=== PATIENT | male | born 1945 | race Caucasian/White ===

== ENCOUNTER 2019-05-05 15:56 | Inpatient (IN) | payer MEDICARE, BC ==
[~2019-05-05] VITALS: Ht 175.3 cm; Wt 67.6 kg
[~2019-05-05 15:56] MED LIST: CHOL400T10 PO; MIRT15TA5 PO; PRED20TA PO; SIMV20TA PO; VITA200C45 PO
[2019-05-05] MEDS ORDERED: ACETAMINOPHEN 325 MG TAB PO PRN ×2 (16:30→22:00)
[2019-05-05] MEDS ORDERED: ONDANSETRON 4 MG INJ IV PRN (16:30)
[2019-05-05] MEDS ORDERED: DILTIAZEM 25 MG INJ ONE (16:34)
[2019-05-05] MEDS ORDERED: DILTIAZEM 30 MG TAB PO ONE (17:00)
[2019-05-05] MEDS ORDERED: DILTIAZEM 25 MG INJ IV ONE (17:00)
[2019-05-05] MEDS ORDERED: DILTIAZEM-D5W 125MG/125ML DRIP 125 ML IV STA (17:07)
[2019-05-05] MEDS ORDERED: DILTIAZEM 25 MG INJ IV STA (17:07)
[2019-05-05] MEDS ORDERED: ASPIRIN 325 MG TAB PO ONE (17:30)
[2019-05-05 20:35] VITALS: BP 133/83; PULSE 81; RESP 21; Ht 175.3 cm; Wt 67.6 kg
[2019-05-05] MEDS ORDERED: NACL 0.9% 3 ML SYG IV SCH (22:00)
[2019-05-05] MEDS: ATORVASTATIN 10 MG TAB PO SCH (22:25)
[2019-05-06 00:03] VITALS: BP 103/63; PULSE 75; RESP 20
[2019-05-06 04:00] VITALS: BP 102/66; PULSE 73; RESP 20
[2019-05-06] MEDS: PANTOPRAZOLE (EC) 40 MG TAB PO SCH (05:44)
[2019-05-06 07:48] VITALS: BP 120/85; PULSE 83; RESP 17
[2019-05-06] MEDS: VITAMIN E 200 UNITS CAP PO SCH (09:31)
[2019-05-06] MEDS: CHOLECALCIFEROL 400 UNITS TAB PO SCH (09:32)
[2019-05-06] MEDS: predniSONE 20 MG TAB PO SCH ×3 (09:32→21:00)
[2019-05-06] MEDS: DILTIAZEM (CD) 120 MG CAP PO SCH ×2 (09:32→21:00)
[2019-05-06] MEDS ORDERED: DILTIAZEM 25 MG INJ IV ONE (10:00)
[2019-05-06 11:14] VITALS: BP 123/68; PULSE 87; RESP 19
[2019-05-06] MEDS: DRONEDARONE HYDROCHLORIDE 400 MG TAB PO SCH ×2 (11:27→17:41)
[2019-05-06 15:42] VITALS: BP 118/74; PULSE 85; RESP 17
[2019-05-06 20:00] VITALS: BP 146/86; PULSE 95; RESP 20
[2019-05-06] MEDS: MIRTAZAPINE 15 MG TAB PO SCH (20:59)
[2019-05-06] MEDS: ATORVASTATIN 10 MG TAB PO SCH (21:00)
[2019-05-06] MEDS ORDERED: NON-FORMULARY/PATIENT OWN MED (Simvastatin* (Zocor*) 20 MG) PO SCH (21:00)
[2019-05-07] VITALS: BP 100/63; PULSE 79; RESP 20
[2019-05-07 04:00] VITALS: BP 119/79; PULSE 68; RESP 20
[2019-05-07] MEDS: PANTOPRAZOLE (EC) 40 MG TAB PO SCH (05:00)
[2019-05-07 07:22] VITALS: BP 141/80; PULSE 80; RESP 16
[2019-05-07] MEDS: LEVALBUTEROL (NEB) 0.63 MG/3 ML AMP HHN SCH ×3 (08:00→20:02)
[2019-05-07] MEDS: DRONEDARONE HYDROCHLORIDE 400 MG TAB PO SCH ×2 (08:23→17:16)
[2019-05-07] MEDS: predniSONE 20 MG TAB PO SCH ×3 (08:23→20:53)
[2019-05-07] MEDS: CHOLECALCIFEROL 400 UNITS TAB PO SCH (08:24)
[2019-05-07] MEDS: DILTIAZEM (CD) 120 MG CAP PO SCH ×2 (08:24→20:55)
[2019-05-07] MEDS: VITAMIN E 200 UNITS CAP PO SCH (09:49)
[2019-05-07 11:13] VITALS: BP 124/84; PULSE 56; RESP 18
[2019-05-07 15:10] VITALS: BP 116/77; PULSE 60; RESP 18
[2019-05-07 20:00] VITALS: BP 121/77; PULSE 79; RESP 18
[2019-05-07] MEDS: MIRTAZAPINE 15 MG TAB PO SCH (20:53)
[2019-05-07] MEDS: ATORVASTATIN 10 MG TAB PO SCH (20:58)
[2019-05-08] VITALS: BP 116/78; PULSE 72; RESP 18
[2019-05-08] MEDS: LEVALBUTEROL (NEB) 0.63 MG/3 ML AMP HHN SCH ×4 (02:00→19:56)
[2019-05-08 04:00] VITALS: BP 113/77; PULSE 80; RESP 18
[2019-05-08] MEDS: PANTOPRAZOLE (EC) 40 MG TAB PO SCH (06:01)
[2019-05-08 07:00] VITALS: BP 116/87; PULSE 68; RESP 16
[2019-05-08] MEDS: predniSONE 20 MG TAB PO SCH (08:55)
[2019-05-08] MEDS: CHOLECALCIFEROL 400 UNITS TAB PO SCH (08:55)
[2019-05-08] MEDS: DRONEDARONE HYDROCHLORIDE 400 MG TAB PO SCH ×2 (08:56→18:07)
[2019-05-08] MEDS: VITAMIN E 200 UNITS CAP PO SCH (08:59)
[2019-05-08] MEDS: DILTIAZEM (CD) 120 MG CAP PO SCH ×2 (09:07→22:15)
[2019-05-08 11:05] VITALS: BP 118/65; PULSE 78; RESP 18
[2019-05-08] MEDS: FUROSEMIDE 40 MG INJ IV SCH (11:40)
[2019-05-08] MEDS: ASPIRIN (EC) 81 MG TAB PO SCH (12:51)
[2019-05-08 15:00] VITALS: BP 109/62; PULSE 58; RESP 18
[2019-05-08] MEDS: METHYLPREDNISOLONE 40 MG INJ IV SCH ×2 (15:16→22:15)
[2019-05-08 20:00] VITALS: BP 137/75; PULSE 78; RESP 18
[2019-05-08] MEDS: ATORVASTATIN 10 MG TAB PO SCH (21:00)
[2019-05-08] MEDS: MIRTAZAPINE 15 MG TAB PO SCH (22:14)
[2019-05-09] VITALS: BP 122/63; PULSE 69; RESP 18
[2019-05-09] MEDS: LEVALBUTEROL (NEB) 0.63 MG/3 ML AMP HHN SCH ×4 (02:00→19:59)
[2019-05-09 04:00] VITALS: BP 127/80; PULSE 51; RESP 18
[2019-05-09] MEDS: PANTOPRAZOLE (EC) 40 MG TAB PO SCH (05:18)
[2019-05-09] MEDS: METHYLPREDNISOLONE 40 MG INJ IV SCH ×3 (05:18→21:44)
[2019-05-09 07:19] VITALS: BP 117/82; PULSE 66; RESP 18
[2019-05-09] MEDS: VITAMIN E 200 UNITS CAP PO SCH (08:04)
[2019-05-09] MEDS: CHOLECALCIFEROL 400 UNITS TAB PO SCH (08:04)
[2019-05-09] MEDS: DRONEDARONE HYDROCHLORIDE 400 MG TAB PO SCH ×2 (08:05→17:26)
[2019-05-09] MEDS: FUROSEMIDE 40 MG INJ IV SCH (08:05)
[2019-05-09] MEDS: DILTIAZEM (CD) 120 MG CAP PO SCH ×2 (08:05→21:46)
[2019-05-09] MEDS: ASPIRIN (EC) 81 MG TAB PO SCH (08:12)
[2019-05-09 11:38] VITALS: BP 150/78; PULSE 78; RESP 18
[2019-05-09 15:23] VITALS: BP 118/79; PULSE 55; RESP 18
[2019-05-09 20:00] VITALS: BP 122/66; PULSE 55; RESP 20
[2019-05-09] MEDS: ATORVASTATIN 10 MG TAB PO SCH (21:00)
[2019-05-09] MEDS: MIRTAZAPINE 15 MG TAB PO SCH (21:44)
[2019-05-10] VITALS: BP 119/80; PULSE 60; RESP 20
[2019-05-10] MEDS: LEVALBUTEROL (NEB) 0.63 MG/3 ML AMP HHN SCH ×4 (01:11→19:47)
[2019-05-10 04:00] VITALS: BP 106/65; PULSE 62; RESP 20
[2019-05-10] MEDS: METHYLPREDNISOLONE 40 MG INJ IV SCH ×3 (05:29→20:18)
[2019-05-10] MEDS: PANTOPRAZOLE (EC) 40 MG TAB PO SCH (05:29)
[2019-05-10 07:27] VITALS: BP 117/74; PULSE 66; RESP 19
[2019-05-10] MEDS: VITAMIN E 200 UNITS CAP PO SCH (08:50)
[2019-05-10] MEDS: ASPIRIN (EC) 81 MG TAB PO SCH (08:51)
[2019-05-10] MEDS: CHOLECALCIFEROL 400 UNITS TAB PO SCH (08:51)
[2019-05-10] MEDS: DILTIAZEM (CD) 240 MG CAP PO SCH (08:51)
[2019-05-10] MEDS: DRONEDARONE HYDROCHLORIDE 400 MG TAB PO SCH ×2 (08:51→17:35)
[2019-05-10] MEDS: FUROSEMIDE 40 MG INJ IV SCH (08:52)
[2019-05-10 11:16] VITALS: BP 115/69; PULSE 55; RESP 22
[2019-05-10 15:09] VITALS: BP 120/70; PULSE 72; RESP 29
[2019-05-10 20:00] VITALS: BP 146/69; PULSE 69; RESP 20
[2019-05-10] MEDS: MIRTAZAPINE 15 MG TAB PO SCH (20:18)
[2019-05-10] MEDS: DILTIAZEM (CD) 120 MG CAP PO SCH (20:18)
[2019-05-10] MEDS: ATORVASTATIN 10 MG TAB PO SCH (20:18)
[2019-05-11] VITALS: BP 131/73; PULSE 68; RESP 18
[2019-05-11] MEDS: LEVALBUTEROL (NEB) 0.63 MG/3 ML AMP HHN SCH ×4 (02:00→19:33)
[2019-05-11 04:00] VITALS: BP 125/98; PULSE 60; RESP 19
[2019-05-11] MEDS: PANTOPRAZOLE (EC) 40 MG TAB PO SCH (05:42)
[2019-05-11] MEDS: METHYLPREDNISOLONE 40 MG INJ IV SCH ×3 (05:42→20:40)
[2019-05-11 07:28] VITALS: BP 129/76; PULSE 72; RESP 18
[2019-05-11] MEDS: CHOLECALCIFEROL 400 UNITS TAB PO SCH (09:36)
[2019-05-11] MEDS: VITAMIN E 200 UNITS CAP PO SCH (09:36)
[2019-05-11] MEDS: ASPIRIN (EC) 81 MG TAB PO SCH (09:36)
[2019-05-11] MEDS: DRONEDARONE HYDROCHLORIDE 400 MG TAB PO SCH ×2 (09:36→16:59)
[2019-05-11] MEDS: DILTIAZEM (CD) 240 MG CAP PO SCH (09:36)
[2019-05-11] MEDS: FUROSEMIDE 40 MG INJ IV SCH (09:37)
[2019-05-11 11:30] VITALS: BP 142/86; PULSE 77; RESP 25
[2019-05-11 15:35] VITALS: BP 142/76; PULSE 74; RESP 25
[2019-05-11 19:58] VITALS: BP 136/85; PULSE 57; RESP 19
[2019-05-11] MEDS: MIRTAZAPINE 15 MG TAB PO SCH (20:40)
[2019-05-11] MEDS: ATORVASTATIN 10 MG TAB PO SCH (20:40)
[2019-05-11] MEDS: DILTIAZEM (CD) 120 MG CAP PO SCH (20:41)
[2019-05-12] VITALS: BP 133/78; PULSE 75; RESP 19
[2019-05-12] MEDS: LEVALBUTEROL (NEB) 0.63 MG/3 ML AMP HHN SCH ×4 (01:50→19:56)
[2019-05-12 04:00] VITALS: BP 119/76; PULSE 76; RESP 18
[2019-05-12] MEDS: METHYLPREDNISOLONE 40 MG INJ IV SCH ×2 (05:53→20:37)
[2019-05-12] MEDS: PANTOPRAZOLE (EC) 40 MG TAB PO SCH (05:53)
[2019-05-12 07:28] VITALS: BP 130/87; PULSE 67; RESP 18
[2019-05-12] MEDS: CHOLECALCIFEROL 400 UNITS TAB PO SCH (10:39)
[2019-05-12] MEDS: DILTIAZEM (CD) 240 MG CAP PO SCH (10:39)
[2019-05-12] MEDS: ASPIRIN (EC) 81 MG TAB PO SCH (10:40)
[2019-05-12] MEDS: VITAMIN E 200 UNITS CAP PO SCH (10:40)
[2019-05-12] MEDS: FUROSEMIDE 40 MG INJ IV SCH (10:41)
[2019-05-12] MEDS: DRONEDARONE HYDROCHLORIDE 400 MG TAB PO SCH ×2 (10:41→17:30)
[2019-05-12 11:07] VITALS: BP 139/100; PULSE 74; RESP 19
[2019-05-12 15:26] VITALS: BP 131/81; PULSE 71; RESP 18
[2019-05-12] MEDS: MYCOPHENOLATE 250 MG CAP PO SCH ×2 (16:01→20:38)
[2019-05-12 19:46] VITALS: BP 103/73; PULSE 66; RESP 19
[2019-05-12] MEDS: MIRTAZAPINE 15 MG TAB PO SCH (20:38)
[2019-05-12] MEDS: ATORVASTATIN 10 MG TAB PO SCH (20:38)
[2019-05-12] MEDS: DILTIAZEM (CD) 120 MG CAP PO SCH (20:39)
[2019-05-13] VITALS: BP 124/84; PULSE 66; RESP 18
[2019-05-13] MEDS: LEVALBUTEROL (NEB) 0.63 MG/3 ML AMP HHN SCH ×3 (01:50→14:00)
[2019-05-13 04:00] VITALS: BP 117/74; PULSE 66; RESP 19
[2019-05-13] MEDS: PANTOPRAZOLE (EC) 40 MG TAB PO SCH (06:19)
[2019-05-13 07:40] VITALS: BP 105/59; PULSE 77; RESP 17
[2019-05-13] MEDS: VITAMIN E 200 UNITS CAP PO SCH (08:58)
[2019-05-13] MEDS: DRONEDARONE HYDROCHLORIDE 400 MG TAB PO SCH (08:59)
[2019-05-13] MEDS: CHOLECALCIFEROL 400 UNITS TAB PO SCH (08:59)
[2019-05-13] MEDS: MYCOPHENOLATE 250 MG CAP PO SCH (08:59)
[2019-05-13] MEDS: ASPIRIN (EC) 81 MG TAB PO SCH (08:59)
[2019-05-13] MEDS: METHYLPREDNISOLONE 40 MG INJ IV SCH (08:59)
[2019-05-13] MEDS: DILTIAZEM (CD) 240 MG CAP PO SCH (08:59)
[2019-05-13] MEDS ORDERED: FUROSEMIDE 40 MG INJ IV SCH (09:00)
[2019-05-13 11:32] VITALS: BP 137/79; PULSE 86; RESP 22
[2019-05-13 15:12] VITALS: BP 140/85; PULSE 73; RESP 22
== END 2019-05-13 16:10 | disposition home or self-care (01) | DRG 196 ==
LOC: E/R 15:56 → TEL 16:07
PROVIDERS: ADMIT Internal Medicine; ATTEND Internal Medicine
DX: J84.89 Other specified interstitial pulmonary diseases (principal); I21.A1 Myocardial infarction type 2; I48.92 Unspecified atrial flutter; I24.8 Other forms of acute ischemic heart disease; E87.1 Hypo-osmolality and hyponatremia; C78.02 Secondary malignant neoplasm of left lung; Z66 Do not resuscitate; I44.1 Atrioventricular block, second degree; Z79.52 Long term (current) use of systemic steroids; Z85.46 Personal history of malignant neoplasm of prostate; Z85.51 Personal history of malignant neoplasm of bladder; I27.20 Pulmonary hypertension, unspecified; T38.0X5A Adverse effect of glucocorticoids and synthetic analogues, initial encounter
CPT/HCPCS: 36415; 71045; 71250; 80048; 80053; 82550; 82553; 83036; 83735; 84100; 84145; 84439; 84443; 84484; 85025; 93005; 93306; 94640; 94664; J1940; J2920; J7512; J7517